=== PATIENT | female | born 1950 | race Two or more races ===

== ENCOUNTER 2018-11-30 17:14 | Emergency (ER) | payer MEDICAID ==
[~2018-11-30] VITALS: Ht 144.8 cm; Wt 62.1 kg
--- NOTE | 2018-11-30 18:16 | NUR ---
dysuria with on and off fever- BB daughter to ER
[2018-11-30 19:02] LABS: APPEARANCE,URINE Slightly Cloudy (CLEAR); BILIRUBIN,URINE Negative (NEGATIVE); BLOOD, URINE Trace-intact Ery/uL (NEGATIVE); COLOR,URINE Yellow (YELLOW); KETONES,URINE Negative (NEGATIVE); LEUKOCYTE ESTERASE ,URINE Moderate (NEGATIVE); NITRITE, URINE Negative (NEGATIVE); PH,URINE 6.5 (5.0-8.0); PROTEIN,URINE Negative (NEGATIVE); UGLUCOSE 500 MG/DL mg/dL (NEGATIVE); UROBILINOGEN,URINE 0.2 EU/dL (0.2)
[2018-11-30 19:24] LABS: BACTERIA,URINE MANY /HPF (None Seen); SQUAMOUS EPITHELIAL CELL,UR MODERATE /HPF (None Seen); WBC,URINE 30-50 /HPF (0-3)
[2018-11-30 20:14] VITALS: BP 126/68
[2018-12-25] MEDS ORDERED: SIMV40TA5 PO (07:53)
== END 2018-11-30 20:15 | disposition home or self-care (01) ==
LOC: ER 17:14
DX: N39.0 Urinary tract infection, site not specified (principal); I10 Essential (primary) hypertension; E11.9 Type 2 diabetes mellitus without complications; Z95.818 Presence of other cardiac implants and grafts; Z95.0 Presence of cardiac pacemaker
CPT/HCPCS: 81000-TC; 87086-TC; 87186-TC

== ENCOUNTER 2018-12-17 19:26 | Emergency (ER) | payer MEDICAID ==
[~2018-12-17] VITALS: Ht 144.8 cm; Wt 61.7 kg
--- NOTE | 2018-12-17 20:12 | NUR ---
PT BIB DAUGHTER C/O OF EPIGASTRIC/ABDOMINAL PAIN (/) AND NAUSEA. A/O X3, AMBULATORY. NO ACUTE DISTRESS. PLACED ON GURNEY. SAFETY PRECAUTION NOTED. AWAITING MD JOSUE AND ORDERS.
[2018-12-17] MEDS ORDERED: IV NS 0.9% 1,000 ML BAG IV ONE (20:30)
[2018-12-17] MEDS ORDERED: ONDANSETRON HCL/PF 4 MG/2 ML VIAL IVP ONE (20:30)
[2018-12-17] MEDS ORDERED: MORPHINE SULFATE INJ 2 MG/ML DISP.SYRIN IV ONE (20:30)
[2018-12-17] MEDS ORDERED: ONDANSETRON HCL/PF 4 MG/2 ML VIAL ONE (20:44)
[2018-12-17] MEDS ORDERED: MORPHINE SULFATE INJ 4 MG/ML DISP.SYRIN ONE (20:45)
[2018-12-17 20:46] LABS: BASOPHILS # (AUTO) 0.1 /CMM (0.0-0.2); EOSINOPHILS % (AUTO) 3.1 % (0.0-6.0); HEMATOCRIT 40 % (33-45); HEMOGLOBIN 12.8 g/dL (11.5-14.8); LYMPHOCYTES # (AUTO) 3.3 /CMM (0.8-4.8); LYMPHOCYTES % (AUTO) 28.1 % (20.0-44.0); MEAN CORPUSCULAR HGB CONC 32 g/dl (31.0-36.0); MEAN CORPUSCULAR VOLUME 83 fL (82-100); MONOCYTES # (AUTO) 0.9 /CMM (0.1-1.30); MONOCYTES % (AUTO) 7.5 % (2.0-12.0); NEUTROPHILS # (AUTO) 7.2 /CMM (1.8-8.9); NEUTROPHILS % (AUTO) 60.3 % (43.0-81.0); PLATELET COUNT (AUTO) 237 /CMM (150-450); WHITE BLOOD COUNT (AUTO) 11.9 K/uL (4.3-11.0)
[2018-12-17 20:55] LABS: CALCIUM, SERUM 9.5 mg/dL (8.5-10.1); POTASSIUM 4.7 mmol/L (3.5-5.1)
[2018-12-17 21:01] LABS: ALBUMIN 3.6 g/dL (3.4-5.0); BILIRUBIN,DIRECT 0.1 mg/dL (0.0-0.2); BILIRUBIN,TOTAL 0.3 mg/dL (0.2-1.0); TOTAL PROTEIN, SERUM 7.9 g/dL (6.4-8.2)
[2018-12-17] MEDS ORDERED: IV NS 0.9% 250 ML IV ONE (21:02)
[2018-12-17] MEDS ORDERED: CT SWABBABLE VALVE TRANS SET 1 EA INFUS.SET MC ONE (21:02)
[2018-12-17] MEDS ORDERED: IOHEXOL-300 100 ML VIAL IV ONE (21:02)
--- NOTE | 2018-12-17 21:14 | NUR ---
PT TAKEN TO CT SCAN.
[2018-12-18 00:09] LABS: APPEARANCE,URINE Cloudy (CLEAR); BILIRUBIN,URINE Negative (NEGATIVE); BLOOD, URINE Small Ery/uL (NEGATIVE); COLOR,URINE Yellow (YELLOW); KETONES,URINE Negative (NEGATIVE); LEUKOCYTE ESTERASE ,URINE Moderate (NEGATIVE); NITRITE, URINE Negative (NEGATIVE); PH,URINE 5.5 (5.0-8.0); PROTEIN,URINE 30 mg/dl (NEGATIVE); UGLUCOSE 250 MG/DL mg/dL (NEGATIVE); UROBILINOGEN,URINE 0.2 EU/dL (0.2)
[2018-12-18 00:19] LABS: BACTERIA,URINE 2+ /HPF (None Seen); SQUAMOUS EPITHELIAL CELL,UR Few /HPF (None Seen); WBC,URINE 21-50 /HPF (0-3)
--- NOTE | 2018-12-18 00:34 | NUR ---
IV removed. Catheter intact and site benign. Pressure and 4x4 applied to site. No bleeding noted.Patient discharged to home in stable condition. Written and verbal after care instructions given. Patient verbalizes understanding of instruction.
[2018-12-18 00:35] VITALS: BP 119/71
[2018-12-18] MEDS ORDERED: NITROFURANTOIN/NITROFURAN MAC 100 MG CAPSULE ONE (00:35)
[2018-12-18] MEDS ORDERED: NITROFURANTOIN/NITROFURAN MAC 100 MG CAPSULE PO ONE (01:00)
[2018-12-18] MEDS ORDERED: INSU100V7 SQ (18:55)
[2018-12-18] MEDS ORDERED: ASPI-1152 PO (18:55)
[2018-12-18] MEDS ORDERED: METF-440 PO (18:55)
[2018-12-18] MEDS ORDERED: INSU100V28 SQ (18:55)
[2018-12-18] MEDS ORDERED: CHOL100044 PO (18:55)
[2018-12-18] MEDS ORDERED: NEBI2.5T5 PO (18:55)
[2018-12-18] MEDS ORDERED: [UNRECOGNIZED DRUG - OTHER] PO (18:58)
[2018-12-25] MEDS ORDERED: SIMV40TA5 PO (07:53)
== END 2018-12-18 00:37 | disposition home or self-care (01) ==
LOC: ER 19:29
DX: N39.0 Urinary tract infection, site not specified (principal); R11.2 Nausea with vomiting, unspecified; I10 Essential (primary) hypertension; E11.9 Type 2 diabetes mellitus without complications; I44.4 Left anterior fascicular block; Z95.0 Presence of cardiac pacemaker; Z95.1 Presence of aortocoronary bypass graft; Z86.73 Personal history of transient ischemic attack (TIA), and cerebral infarction without residual deficits
CPT/HCPCS: 36415; 71045; 74177; 80048; 80076; 81001; 83690; 84484; 85025; 85730; 87086; 93005; 96361; 96374; 96375; 99284; J2270; J2405; J7030; J7050; Q9967; 81000-TC; 87186-TC

== ENCOUNTER 2018-12-18 17:35 | Inpatient (IN) | payer MEDICAID ==
[~2018-12-18] VITALS: Ht 144.8 cm; Wt 59.9 kg
--- NOTE | 2018-12-18 17:50 | NUR ---
PATIENT ARRIVED AMBULATORY. A&O X 3, WITH C/O N/V
[2018-12-18] MEDS ORDERED: MORPHINE SULFATE INJ 2 MG/ML DISP.SYRIN IV ONE (18:00)
[2018-12-18] MEDS ORDERED: ONDANSETRON HCL/PF 4 MG/2 ML VIAL IVP ONE (18:00)
[2018-12-18] MEDS ORDERED: IV NS 0.9% 1,000 ML BAG IV ONE ×2 (18:00→19:00)
--- NOTE | 2018-12-18 18:00 | NUR ---
BLOOD COLLECTED AND SEND TO LAB
--- NOTE | 2018-12-18 18:02 | NUR ---
STOCK LAYER AT BEDSIDE
[2018-12-18] MEDS ORDERED: MORPHINE SULFATE INJ 2 MG/ML DISP.SYRIN ONE (18:08)
[2018-12-18] MEDS ORDERED: ONDANSETRON HCL/PF 4 MG/2 ML VIAL ONE (18:08)
[2018-12-18 18:09] LABS: BASOPHILS # (AUTO) 0.1 /CMM (0.0-0.2); BASOPHILS % (AUTO) 0.6 % (0.0-2.0); EOSINOPHILS % (AUTO) 1.4 % (0.0-6.0); HEMATOCRIT 41 % (33-45); HEMOGLOBIN 13.4 g/dL (11.5-14.8); LYMPHOCYTES # (AUTO) 3.6 /CMM (0.8-4.8); LYMPHOCYTES % (AUTO) 32.9 % (20.0-44.0); MEAN CORPUSCULAR HGB CONC 33 g/dl (31.0-36.0); MEAN CORPUSCULAR VOLUME 82 fL (82-100); MONOCYTES # (AUTO) 0.5 /CMM (0.1-1.30); MONOCYTES % (AUTO) 4.6 % (2.0-12.0); NEUTROPHILS # (AUTO) 6.6 /CMM (1.8-8.9); NEUTROPHILS % (AUTO) 60.5 % (43.0-81.0); PLATELET COUNT (AUTO) 267 /CMM (150-450); RED BLOOD CELL COUNT(AUTO) 4.96 MIL/uL (4.0-5.2); WHITE BLOOD COUNT (AUTO) 10.9 K/uL (4.3-11.0)
[2018-12-18 18:22] LABS: CALCIUM, SERUM 9.8 mg/dL (8.5-10.1); CARBON DIOXIDE 27 mmol/L (21-32); CHLORIDE 99 mmol/L (98-107); CREATININE 1.1 mg/dL (0.6-1.3); GLUCOSE 255 mg/dL (74-106); POTASSIUM 3.5 mmol/L (3.5-5.1); SODIUM SERUM 139 mmol/L (136-145); UREA NITROGEN, BLOOD 25 mg/dL (7-18)
[2018-12-18 18:34] LABS: ALANINE AMINOTRANSFERASE 23 U/L (12-78); ALKALINE PHOSPHATASE 82 U/L (46-116); ASPARTATE AMINOTRANSFERASE 20 U/L (15-37); BILIRUBIN,DIRECT 0.1 mg/dL (0.0-0.2); BILIRUBIN,TOTAL 0.6 mg/dL (0.2-1.0); LIPASE 110 U/L (73-393); TOTAL PROTEIN, SERUM 8.6 g/dL (6.4-8.2)
[2018-12-18] MEDS ORDERED: METOCLOPRAMIDE HCL 10 MG/2 ML VIAL ONE (18:44)
[2018-12-18] MEDS ORDERED: LORAZEPAM INJ 2 MG/ML VIAL ONE (18:44)
[2018-12-18] MEDS ORDERED: CHOL100044 PO (18:55)
[2018-12-18] MEDS ORDERED: INSU100V7 SQ (18:55)
[2018-12-18] MEDS ORDERED: NEBI2.5T5 PO (18:55)
[2018-12-18] MEDS ORDERED: INSU100V28 SQ (18:55)
[2018-12-18] MEDS ORDERED: METF-440 PO (18:55)
[2018-12-18] MEDS ORDERED: ASPI-1152 PO (18:55)
[2018-12-18] MEDS ORDERED: [UNRECOGNIZED DRUG - OTHER] PO (18:58)
[2018-12-18] MEDS ORDERED: METOCLOPRAMIDE HCL 10 MG/2 ML VIAL IV ONE (19:00)
[2018-12-18] MEDS ORDERED: IMIPENEM/CILASTATIN 500 MG in IV NS 0.9% 100 ML IV SCH (19:00)
[2018-12-18] MEDS ORDERED: MEROPENEM 500 MG in IV NS 0.9% 50 ML IV ONE (19:00)
[2018-12-18] MEDS ORDERED: LORAZEPAM INJ 2 MG/ML VIAL IV ONE (19:00)
--- NOTE | 2018-12-18 19:23 | NUR ---
RECEIVED REPORT FROM ELAINE LOCKHART FOR EMMY. PT IS AAOX4, NOT IN RESPIRATORY DISTRESS, V/S STABLE KEPT RESTED AND COMFORTABLE, WITH ONGOING IV NS, URINE SPECIMEN COLLECTED AND SENT TO LAB.
[2018-12-18 19:37] LABS: APPEARANCE,URINE Clear (CLEAR); BILIRUBIN,URINE Negative (NEGATIVE); BLOOD, URINE Negative Ery/uL (NEGATIVE); COLOR,URINE Yellow (YELLOW); KETONES,URINE 15 (NEGATIVE); LEUKOCYTE ESTERASE ,URINE Negative (NEGATIVE); NITRITE, URINE Negative (NEGATIVE); PROTEIN,URINE 30 mg/dl (NEGATIVE); UGLUCOSE 500 MG/DL mg/dL (NEGATIVE); UROBILINOGEN,URINE 0.2 EU/dL (0.2)
[2018-12-18] MEDS ORDERED: MEROPENEM 500 MG VIAL IV ONE (19:39)
--- NOTE | 2018-12-18 20:12 | NUR ---
RECIEVED [facility] [id number]
--- NOTE | 2018-12-18 20:28 | NUR ---
REPORT GIVEN TO ELAINE WEAVER FOR EMMY.
--- NOTE | 2018-12-18 20:30 | NUR ---
CALLED [employer] COACH DOCTOR PAGED
--- NOTE | 2018-12-18 21:20 | NUR ---
QUALITY ASSURANCE COORDINATORTRANSPORTATION AIDE NOTES Admitted a 68yo female patient for intractable nausea and vomiting. Patient came to unit accompanied by daughter via aakashrsuzie. Alert, oriented x 3, algerian speaking. Patient denies smoking, drinking and recreational drug use. Patient is a vegetarian- no fish, no meat and no eggs, but okay with dairy. Tele monitor in place, sinus rhythm 95. Skin assessment done, pictures attached to chart. Oriented to call light- placed within easy reach. Bed in low, locked position. Will continue to monitor accordingly
[2018-12-18 22:00] VITALS: BP 140/63
[2018-12-18] MEDS ORDERED: IV NS 0.9% 1,000 ML IV PRN (22:17)
[2018-12-18] MEDS ORDERED: ACETAMINOPHEN 325 MG TABLET PO PRN (22:30)
[2018-12-18] MEDS ORDERED: Z GUARD REMEDY 2 OZ OINT TP PRN (22:30)
[2018-12-18] MEDS ORDERED: DEXTROSE 50%-WATER 50 ML DISP.SYRIN IV PRN (22:30)
[2018-12-18] MEDS: METOCLOPRAMIDE HCL 10 MG/2 ML VIAL IV SCH (22:44)
[2018-12-18] MEDS: INSULIN REGULAR, HUMAN 100 UNIT/ML 3 ML VIAL SQ PRN (22:52)
--- NOTE | 2018-12-18 22:53 | NUR ---
RN NOTES BSL- 233mg/dL. Insulin 4units given as ordered.
[2018-12-19] VITALS: BP 155/90
[2018-12-19] MEDS: ONDANSETRON HCL/PF 4 MG/2 ML VIAL IVP PRN ×3 (02:17→13:33)
[2018-12-19 04:00] VITALS: BP 155/82
[2018-12-19] MEDS: METOCLOPRAMIDE HCL 10 MG/2 ML VIAL IV SCH ×4 (04:30→21:34)
[2018-12-19 06:21] LABS: BASOPHILS % (AUTO) 0.2 % (0.0-2.0); HEMATOCRIT 36 % (33-45); HEMOGLOBIN 11.9 g/dL (11.5-14.8); LYMPHOCYTES # (AUTO) 1.1 /CMM (0.8-4.8); LYMPHOCYTES % (AUTO) 8.3 % (20.0-44.0); MEAN CORPUSCULAR HGB CONC 33 g/dl (31.0-36.0); MEAN CORPUSCULAR VOLUME 81 fL (82-100); MONOCYTES # (AUTO) 0.6 /CMM (0.1-1.30); MONOCYTES % (AUTO) 4.1 % (2.0-12.0); NEUTROPHILS % (AUTO) 87.4 % (43.0-81.0); PLATELET COUNT (AUTO) 218 /CMM (150-450); RED BLOOD CELL COUNT(AUTO) 4.44 MIL/uL (4.0-5.2); WHITE BLOOD COUNT (AUTO) 13.8 K/uL (4.3-11.0)
[2018-12-19 06:26] LABS: CALCIUM, SERUM 8.6 mg/dL (8.5-10.1); CREATININE 0.8 mg/dL (0.6-1.3); PHOSPHORUS 5.1 mg/dL (2.5-4.9); POTASSIUM 4.1 mmol/L (3.5-5.1)
--- NOTE | 2018-12-19 06:42 | NUR ---
RN NOTES Reported to Dr. Christopher Duggan critical value of troponin- 1.525. Telephone order to give aspirin 325mg PO x 1 and to start lovenox 1mg/kg SQ BID. Orders noted and carried out
[2018-12-19 06:47] LABS: MAGNESIUM 1.1 mg/dL (1.8-2.4)
[2018-12-19] MEDS ORDERED: ASPIRIN 325 MG TABLET PO ONE (07:00)
[2018-12-19] MEDS: INSULIN REGULAR, HUMAN 100 UNIT/ML 3 ML VIAL SQ PRN ×4 (07:08→21:32)
[2018-12-19] MEDS: BLOOD SUGAR DIAGNOSTIC 1 EACH STRIP IN SCH ×4 (07:17→21:05)
--- NOTE | 2018-12-19 07:30 | NUR ---
HOUSING LIAISON CLOSING NOTES Patient in bed, alert, oriented x 3. Daughter at bedside. Not in any distress. peripheral IV infusing at 75mL/hr. Tele monitor in place, SR 95. BSL 238, 4units insulin coverage given. Safety measures in place. Endorsed EMMY to AM RN Addendum: 12/19/18 at 0745 by KEYONNA ORTIZ RN ADDITIONAL NOTES Endorsed Mg level of 1.1
--- NOTE | 2018-12-19 08:00 | NUR ---
HOME HEALTH ASSISTANT OPENING NOTES Received Patient awake and resting in bed with daughter at bedside. A/O x 4, Tonya speaking. VS stable with no acute distress. Breathing even and unlabored on room air with no respiratory distress. Denies pain at the this moment. Dry wounds on BILATERAL BIG TOES clean and dry. 18g PIV on RAC clean, dry, intact and flushes well. IVF NS running at 75ml/hr. Tele monitor in place and operational. SR HR-98. Safety precautions in place. Bed locked and in lowest position with side rails x 2 up. Call light within reach. Will continue to monitor.
[2018-12-19 08:33] VITALS: BP 134/72
[2018-12-19] MEDS ORDERED: MEROPENEM 500 MG in IV NS 0.9% 50 ML IV SCH (09:00)
[2018-12-19] MEDS ORDERED: IOHEXOL-350 100 ML VIAL IV ONE (09:32)
[2018-12-19] MEDS ORDERED: METOPROLOL TARTRATE INJ 5 MG/5 ML AMPUL ONE ×4 (09:32→11:16)
--- NOTE | 2018-12-19 09:45 | NUR ---
CLOD PULLER NOTES Patient taken for CT Angiogram w/ Contrast at this time.
[2018-12-19] MEDS ORDERED: NITROGLYCERIN 0.4 MG/TAB BOTTLE ONE (11:10)
--- NOTE | 2018-12-19 11:24 | NUR ---
CTA completed VSS. Pt tolerated procedure well. Metoprolol IV total 50 mg given, one Nitro SL.
--- NOTE | 2018-12-19 11:50 | NUR ---
INSOLE PRESSER NOTES Patient returned from CT Angiogram with Contrast. VS stable with no acute distress. Breathing even and unlabored, tolerating room air. Will administer AM medications at this time. Daughter at bedside. Will continue to monitor.
[2018-12-19] MEDS: CARVEDILOL 3.125 MG TABLET PO SCH ×2 (11:52→21:16)
[2018-12-19] MEDS: ASPIRIN EC 81 MG TABLET.DR PO SCH (11:52)
[2018-12-19] MEDS: CHOLECALCIFEROL 1,000 UNIT TABLET (VIT D3) PO SCH (11:52)
[2018-12-19] MEDS: MEROPENEM 1 G in IV NS 0.9% 100 ML IV SCH ×2 (11:53→20:56)
[2018-12-19] MEDS: Magnesium 1GM/D5W 100ML PREMIX 100 ML IV SCH ×2 (11:53→13:26)
[2018-12-19] MEDS: ENOXAPARIN SODIUM 60 MG/0.6 ML DISP.SYRIN SQ SCH ×2 (11:56→21:13)
[2018-12-19] MEDS: VALSARTAN 80 MG TABLET PO SCH (13:26)
[2018-12-19 15:52] VITALS: BP 146/82
--- NOTE | 2018-12-19 16:23 | NUR ---
CANCER RESEARCHER NOTES Notified Dr. Alford and Dr. Escalante CT Angiogram results and Troponin Levels at this time. NNO. Will continue to monitor.
--- NOTE | 2018-12-19 19:33 | NUR ---
ADAPTED PHYSICAL EDUCATION AIDE CLOSING NOTES Patient asleep in bed with at bedside. A/O x 4, Tonya speaking. VS stable with no acute distress. Breathing even and unlabored on room air with no respiratory distress. Denies pain at the this moment. Dry wounds on BILATERAL BIG TOES clean and dry. Saline [id number] PIV on RAC clean, dry, intact and flushes well. Tele monitor in place and operational. SR HR-96. Safety precautions in place. Bed locked and in lowest position with side rails x 2 up. Call light within reach. Will endorse plan of care to oncoming shift.
--- NOTE | 2018-12-19 19:35 | NUR ---
RN OPENING NOTES RECEIVED REPORT FROM DAYSHIFT RN REJI. FOUND Pt ASLEEP IN BED, RESPIRATIONS EVEN AND UNLABORED. NO S/S OF ACUTE DISTRESS OR SOB NOTED. VISITING AT BEDSIDE. PER REPORT Pt IS A/OX4, VERBAL, VANCE SPEAKING ONLY. ON TELE MONITOR SR 75. IV ACCESS ON RAC #18G, SL. SAFETY MEASURES IN PLACE. BED LOW, LOCKED, HOB ELEVATED, SIDE RAILS UP, CALL LIGHT AND BEDSIDE TABLE WITHIN REACH. WILL CONTINUE TO MONITOR Pt's CONDITION AND SAFETY THROUGHOUT THE NIGHT.
[2018-12-19 20:00] VITALS: BP 119/73
[2018-12-19 20:44] VITALS: BP 119/73
--- NOTE | 2018-12-19 21:57 | NUR ---
RN NOTES HS ACCUCHECK BG 206. ADMINISTERED SCHEDULED 10UN OF LANTUS AND GAVE ADDITIONAL COVERAGE OF REG INSULIN 4UN. PROVIDED SNACKS AT BEDSIDE.
[2018-12-19] MEDS ORDERED: INSULIN GLARGINE, 100 UNIT/ML CARTRIDGE SQ SCH (22:00)
[2018-12-20] VITALS: BP 119/56
[2018-12-20] MEDS: ONDANSETRON HCL/PF 4 MG/2 ML VIAL IVP PRN ×2 (00:36→06:16)
[2018-12-20] MEDS: ZOLPIDEM TARTRATE 5 MG TABLET PO PRN ×2 (00:43→23:44)
[2018-12-20] MEDS: METOCLOPRAMIDE HCL 10 MG/2 ML VIAL IV SCH ×4 (03:45→21:30)
[2018-12-20 04:08] VITALS: BP 145/71
[2018-12-20] MEDS: BLOOD SUGAR DIAGNOSTIC 1 EACH STRIP IN SCH ×4 (06:23→21:12)
[2018-12-20] MEDS: INSULIN REGULAR, HUMAN 100 UNIT/ML 3 ML VIAL SQ PRN ×4 (06:26→21:30)
[2018-12-20 06:27] LABS: BASOPHILS # (AUTO) 0.1 /CMM (0.0-0.2); BASOPHILS % (AUTO) 0.5 % (0.0-2.0); HEMATOCRIT 35 % (33-45); HEMOGLOBIN 11.4 g/dL (11.5-14.8); LYMPHOCYTES # (AUTO) 2.2 /CMM (0.8-4.8); LYMPHOCYTES % (AUTO) 13.8 % (20.0-44.0); MEAN CORPUSCULAR HGB CONC 33 g/dl (31.0-36.0); MEAN CORPUSCULAR VOLUME 81 fL (82-100); MONOCYTES # (AUTO) 0.9 /CMM (0.1-1.30); MONOCYTES % (AUTO) 5.9 % (2.0-12.0); NEUTROPHILS # (AUTO) 12.6 /CMM (1.8-8.9); NEUTROPHILS % (AUTO) 78.8 % (43.0-81.0); PLATELET COUNT (AUTO) 209 /CMM (150-450); RED BLOOD CELL COUNT(AUTO) 4.26 MIL/uL (4.0-5.2)
--- NOTE | 2018-12-20 06:30 | NUR ---
RN NOTES AC ACCUCHECK 153. ADMINISTERED 2UN OF INSULIN PER SLIDING SCALE.
[2018-12-20 06:44] LABS: ALBUMIN 3.1 g/dL (3.4-5.0); BILIRUBIN,TOTAL 0.5 mg/dL (0.2-1.0); CALCIUM, SERUM 8.3 mg/dL (8.5-10.1); MAGNESIUM 1.7 mg/dL (1.8-2.4); PHOSPHORUS 2.6 mg/dL (2.5-4.9); POTASSIUM 3.2 mmol/L (3.5-5.1); TOTAL PROTEIN, SERUM 6.9 g/dL (6.4-8.2)
--- NOTE | 2018-12-20 06:50 | NUR ---
RN CLOSING NOTES NO SIGNIFICANT CHANGES IN Pt's CONDITION. NO S/S OF ACUTE DISTRESS OR SEVERE SOB NOTED DURING THE NIGHT. ALL NEEDS MET AND ATTENDED TO. Pt IS RESTING IN BED, RESPIRATION EVEN AND UNLABORED. SAFETY MEASURES IN PLACE. BED LOW, LOCKED, HOB ELEVATED, SIDE RAILS UP, CALL LIGHT AND BEDSIDE TABLE WITHIN REACH. WILL ENDORSE TO DAYSHIFT RN FOR Pt's EMMY.
--- NOTE | 2018-12-20 07:00 | NUR ---
RN NOTES PAGED [facility] ONCALL FOR CRITICAL LAB VALUE OF TROPONIN 3.573 WAITING FOR CALL BACK.
--- NOTE | 2018-12-20 07:07 | NUR ---
RN NOTES SPOKE WITH DR FIGUEREDO ON THE PHONE. INFORMED HIM OF Pt's ELEVATED TROP OF 3.573, SAID TO INFORM DR. BROTHERS & DR. ORTEGA.
--- NOTE | 2018-12-20 07:25 | NUR ---
RN NOTES SPOKE WITH DR BROTHERS ON THE PHONE. INFORMED HIM OF Pt's ELEVATED TROP LEVEL OF 3.573, ALSO INFORMED HIM THAT Pt IS C/O HEART BURN. ORDERED MYLANTA/MAALOX. DENEEN SAID HE WILL BE IN THE HOSPITAL SHORTLY TO SEE THE Pt IN PERSON. WILL CARRY OUT THE ORDER.
--- NOTE | 2018-12-20 07:25 | NUR ---
CHASER HELPER OPENING NOTE RECEIVED PATIENT IN BED. ALERT ORIENTED X4. ON ROOM AIR, TOLERATING WELL. RESPIRATIONS EVEN AND UNLABORED. IN NO SIGNIFICANT DISTRESS, HOWEVER PATIENT REPORTS HEARTBURN AND NAUSEA. MD NOTIFIED, ORDERS TO BE RENDERED. PATIENT IS ABLE TO COMMUNICATE NEEDS IN HER [place] LANGUAGE, DAUGHTER AT BEDSIDE ASSISTS WITH TRANSLATION. PATIENT ON TELE MONITORING WITH SR WITH PVC'S AND HR OF 80S. RIGHT AC 18G SL, PATENT AND INTACT. PATIENT KEPT CLEAN AND COMFORTABLE. SAFETY MEASURES IN PLACE, BED IN LOW LOCKED POSITION, SIDE RAILS UP x 2 CALL LIGHT WITHIN EASY REACH, WILL CONTINUE TO MONITOR.
[2018-12-20] MEDS ORDERED: MAG HYDROX/AL HYDROX/SIMETH 30 ML UDC PO PRN (07:30)
[2018-12-20 08:00] VITALS: BP 137/73
[2018-12-20] MEDS: VALSARTAN 80 MG TABLET PO SCH (08:24)
[2018-12-20] MEDS: CARVEDILOL 3.125 MG TABLET PO SCH (08:24)
[2018-12-20] MEDS: ASPIRIN EC 81 MG TABLET.DR PO SCH (08:24)
[2018-12-20] MEDS: MEROPENEM 1 G in IV NS 0.9% 100 ML IV SCH ×2 (08:25→20:36)
[2018-12-20] MEDS: CHOLECALCIFEROL 1,000 UNIT TABLET (VIT D3) PO SCH (08:25)
[2018-12-20] MEDS: ENOXAPARIN SODIUM 60 MG/0.6 ML DISP.SYRIN SQ SCH ×2 (08:36→20:51)
[2018-12-20 08:38] VITALS: BP 137/73
[2018-12-20] MEDS ORDERED: POTASSIUM CHLORIDE 20 MEQ TAB.PRT.SR PO ONE (09:00)
[2018-12-20] MEDS ORDERED: NITROGLYCERIN 30 GM TUBE TP SCH (09:00)
[2018-12-20] MEDS: CARVEDILOL 12.5 MG TABLET PO SCH ×2 (09:00→23:32)
[2018-12-20] MEDS: PANTOPRAZOLE 40 MG TABLET.DR PO SCH ×2 (09:44→20:46)
[2018-12-20] MEDS: POTASSIUM CHLORIDE 20 MEQ TAB.PRT.SR PO SCH ×2 (09:44→11:14)
[2018-12-20] MEDS: SUCRALFATE 1 G TABLET PO SCH ×3 (11:14→21:13)
[2018-12-20] MEDS: Magnesium 1GM/D5W 100ML PREMIX 100 ML IV SCH ×2 (11:14→15:06)
--- NOTE | 2018-12-20 11:26 | NUR ---
WOUND CARE CONSULT: PT PRESENTS CONTINENT AND INDEPENDENT WITH BED MOBILITY. PT NOTED TO HAVE BILATERAL PLANTAR GREAT TOE CALLUSES AND CHEST SURGICAL SCAR, PRESENT ON ADMISSION. WILL DEFER TO MD. WILL SEE PRN.
[2018-12-20 16:14] VITALS: BP 130/82
--- NOTE | 2018-12-20 18:30 | NUR ---
PATIENT REPORTS NAUSEA AND VOMITING SMALL AMOUNT OF EMESIS. ZOFRAN ADMINISTERED AT THIS TIME. WILL CONTINUE TO MONITOR.
--- NOTE | 2018-12-20 18:30 | NUR ---
PATIENT IS NAUSEOUS AND THROWING UP. ORAL IMDUR IS HELD AT THIS TIME. WILL ADMINISTER WHEN PATIENT'S NAUSEA IS IMPROVED. WILL CONTINUE TO MONITOR AT THIS TIME.
--- NOTE | 2018-12-20 19:34 | NUR ---
CHIP APPLYING MACHINE TENDER CLOSING NOTE PATIENT SITTING IN A CHAIR. ALERT ORIENTED X4. ON ROOM AIR, TOLERATING WELL. RESPIRATIONS EVEN AND UNLABORED. IN NO APPARENT DISTRESS OR DISCOMFORT AT THIS TIME. REPORTS VOMITING CEASED AT THIS TIME. PATIENT IS ABLE TO COMMUNICATE NEEDS IN HER [place] LANGUAGE, DAUGHTER AT BEDSIDE ASSISTS WITH TRANSLATION. PATIENT ON TELE MONITORING WITH SR AND HR OF 83. RIGHT AC 18G SL, PATENT AND INTACT. PATIENT KEPT CLEAN AND COMFORTABLE. ALL NEEDS ATTENDED, SAFETY MEASURES IN PLACE, BED IN LOW LOCKED POSITION, SIDE RAILS UP x 2, CALL LIGHT WITHIN EASY REACH, WILL ENDORSE TO PM NURSE FOR EMMY.
--- NOTE | 2018-12-20 19:45 | NUR ---
RN OPENING NOTES RECEIVED REPORT FROM DAYSHIFT ELAINE HAND. FOUND Pt AWAKE, RESTING IN BED, RESPIRATIONS EVEN AND UNLABORED. NO S/S OF ACUTE DISTRESS OR SOB NOTED. DAUGHTER VISITING AT BEDSIDE. Pt IS A/OX4, VERBAL, VANCE SPEAKING ONLY. ON TELE MONITOR SR 75. IV ACCESS ON RAC #18G, SL. WILL BE GETTING PICC LINE INSERTED SOON, WAITING FOR CONSENT TO BE SIGNED. SAFETY MEASURES IN PLACE. BED LOW, LOCKED, HOB ELEVATED, SIDE RAILS UP, CALL LIGHT AND BEDSIDE TABLE WITHIN REACH. WILL CONTINUE TO MONITOR Pt's CONDITION AND SAFETY THROUGHOUT THE NIGHT.
[2018-12-20 20:00] VITALS: BP 153/65
--- NOTE | 2018-12-20 20:05 | NUR ---
RN NOTES PICC LINE INSERTION CONSENT SIGNED. PICC LINE INSERTED ON ZEHRA.
[2018-12-20] MEDS: ISOSORBIDE MONONITRATE (30MG) 30 MG TAB.SR.24H PO SCH (20:36)
--- NOTE | 2018-12-20 20:45 | NUR ---
RN NOTES PER DAYSHIFT Pt WAS VOMITING WHEN THE 1829 IMDUR WAS DUE. HELD THE IMDUR UNTIL Pt's VOMITING WAS RESOLVED WITH ZOFRAN. WAS ENDORSED TO GIVE THE IMDUR LATER WHEN Pt FEELS BETTER. WAS ABLE TO GIVE THE IMDUR 30MG PO @2029, Pt WAS ABLE TO TOLERATE PO INTAKE.
[2018-12-20] MEDS ORDERED: INSULIN GLARGINE, 100 UNIT/ML CARTRIDGE SQ SCH (22:00)
--- NOTE | 2018-12-20 22:00 | NUR ---
RN NOTES HS ACCUCHECK 192. ADMINISTERED SCHEDULED LANTUS 12UN WITH ADDITIONAL COVERAGE OF 3UN REG INSULIN PER SLIDING SCALE.
[2018-12-21] VITALS: BP 134/74
[2018-12-21 04:00] VITALS: BP 141/82
[2018-12-21] MEDS: METOCLOPRAMIDE HCL 10 MG/2 ML VIAL IV SCH (05:14)
[2018-12-21 06:33] LABS: BASOPHILS # (AUTO) 0.1 /CMM (0.0-0.2); BASOPHILS % (AUTO) 0.7 % (0.0-2.0); HEMATOCRIT 30 % (33-45); LYMPHOCYTES % (AUTO) 28.6 % (20.0-44.0); MEAN CORPUSCULAR HGB CONC 34 g/dl (31.0-36.0); MEAN CORPUSCULAR VOLUME 80 fL (82-100); MONOCYTES # (AUTO) 0.9 /CMM (0.1-1.30); MONOCYTES % (AUTO) 8.5 % (2.0-12.0); NEUTROPHILS # (AUTO) 6.1 /CMM (1.8-8.9); NEUTROPHILS % (AUTO) 59.2 % (43.0-81.0); PLATELET COUNT (AUTO) 187 /CMM (150-450); RED BLOOD CELL COUNT(AUTO) 3.68 MIL/uL (4.0-5.2); WHITE BLOOD COUNT (AUTO) 10.3 K/uL (4.3-11.0)
[2018-12-21 06:36] LABS: ALBUMIN 2.7 g/dL (3.4-5.0); BILIRUBIN,TOTAL 0.7 mg/dL (0.2-1.0); CALCIUM, SERUM 8.3 mg/dL (8.5-10.1); MAGNESIUM 1.8 mg/dL (1.8-2.4); PHOSPHORUS 2.1 mg/dL (2.5-4.9); POTASSIUM 3.8 mmol/L (3.5-5.1); TOTAL PROTEIN, SERUM 6.3 g/dL (6.4-8.2)
--- NOTE | 2018-12-21 06:40 | NUR ---
RN NOTES AC ACCUCHECK BG 157. ADMINISTERED 2UN OF REG INSULIN PER SLIDING SCALE.
[2018-12-21] MEDS: BLOOD SUGAR DIAGNOSTIC 1 EACH STRIP IN SCH ×4 (06:42→21:09)
[2018-12-21] MEDS: SUCRALFATE 1 G TABLET PO SCH ×4 (06:43→21:15)
[2018-12-21] MEDS: INSULIN REGULAR, HUMAN 100 UNIT/ML 3 ML VIAL SQ PRN ×4 (06:49→21:14)
--- NOTE | 2018-12-21 06:55 | NUR ---
RN CLOSING NOTES NO SIGNIFICANT CHANGES IN Pt's CONDITION. Pt REMAINS STABLE AT THIS TIME. NO S/S OF ACUTE DISTRESS OR SOB NOTED DURING THE NIGHT. ALL NEEDS MET AND ATTENDED TO. Pt IS RESTING IN BED, RESPIRATION EVEN AND UNLABORED. SAFETY MEASURES IN PLACE. BED LOW, LOCKED, HOB ELEVATED, SIDE RAILS UP, CALL LIGHT AND BEDSIDE TABLE WITHIN REACH. TELE READING SR 70s. WILL ENDORSE TO DAYSHIFT RN FOR Pt's EMMY.
--- NOTE | 2018-12-21 07:45 | NUR ---
PIANO TEACHER OPENING NOTES RECEIVED PT LAYING IN BED WITH HOB ELEVATED. PT IS AWAKE, ALERT AND RESPONSIVE. AFEBRILE. RESPIRATIONS ARE EVEN AND UNLABORED, NOT IN ANY ACUTE DISTRESS NOTED. PT DENIES ANY PAIN, NO C/O SOB, N/V AT THIS TIME. ZEHRA PICCLINE INTACT, NO INFILTRATION NOTED. DRESSING KEPT CLEAN AND DRY. SAFETY MEASURES ARE IN PLACE. DAUGHTER AT BEDSIDE. WILL CONTINUE TO MONITOR THROUGHOUT SHIFT FOR CONTINUITY OF CARE.
[2018-12-21 08:00] VITALS: BP 134/80
[2018-12-21] MEDS: MEROPENEM 1 G in IV NS 0.9% 100 ML IV SCH ×2 (08:23→20:34)
[2018-12-21] MEDS: CARVEDILOL 12.5 MG TABLET PO SCH ×2 (08:23→20:44)
[2018-12-21] MEDS: ISOSORBIDE MONONITRATE (30MG) 30 MG TAB.SR.24H PO SCH (08:23)
[2018-12-21] MEDS: PANTOPRAZOLE 40 MG TABLET.DR PO SCH ×2 (08:23→20:43)
[2018-12-21] MEDS: CHOLECALCIFEROL 1,000 UNIT TABLET (VIT D3) PO SCH (08:23)
[2018-12-21] MEDS: ASPIRIN EC 81 MG TABLET.DR PO SCH (08:23)
[2018-12-21] MEDS: VALSARTAN 80 MG TABLET PO SCH (08:24)
--- NOTE | 2018-12-21 08:30 | NUR ---
MS RN NOTES-- PT WAS SEEN AND EXAMINED BY DR. BROTHERS AND DR. MENDEZ.
[2018-12-21] MEDS: ONDANSETRON HCL/PF 4 MG/2 ML VIAL IVP PRN ×2 (09:54→17:53)
[2018-12-21] MEDS: AMLODIPINE BESYLATE 10 MG TABLET PO SCH (09:55)
[2018-12-21] MEDS ORDERED: K PHOS NEUTRAL 250 MG TABLET PO ONE (10:00)
--- NOTE | 2018-12-21 14:41 | NUR ---
MS RN NOTES-- CALLED US, PER US TECH THEY WILL BE UP WITHIN 20 MINS. PT NOTIFIED.
--- NOTE | 2018-12-21 15:30 | NUR ---
MS RN NOTES-- NOTIFIED DR. MENDEZ OF US ABDOMEN RESULTS W/ ORDERS TO RESUME DIET.
[2018-12-21 16:00] VITALS: BP 110/50
--- NOTE | 2018-12-21 18:32 | NUR ---
MS RN CLOSING NOTES ALL DUE MEDS GIVEN, NEEDS MET AND RENDERED. PT IS A/O X4, AFEBRILE. RESPIRATIONS ARE EVEN AND UNLABORED, NOT IN ANY ACUTE DISTRESS NOTED. PT DENIES ANY PAIN AT THIS TIME, NO C/O SOB. N/V RELIEVED BY REGLAN. ZEHRA PICC LINE INTACT, NO INFILTRATION NOTED. DRESSING KEPT CLEAN AND DRY. DAUGHTER AT BEDSIDE. SAFETY MEASURES ARE IN PLACE. REMINDED PT TO USE CALL LIGHT WHEN ASSISTANCE IS NEEDED, CALL LIGHT IS LEFT WITHIN REACH. WILL ENDORSE TO NEXT SHIFT FOR CONTINUITY OF CARE.
--- NOTE | 2018-12-21 19:21 | NUR ---
MS RN RECEIVE PT IN BED AWAKE WATCHING TV, A/O X 3, RESPIRATIONS EVEN AND UNLABORED, NO SOB NOTED, NO DISTRESS, SAFETY MEASURES IN PLACE. WILL CONTINUE TO MONITOR.
[2018-12-21 20:00] VITALS: BP 129/75
[2018-12-21] MEDS ORDERED: ENOXAPARIN SODIUM 40 MG/0.4 ML DISP.SYRIN SQ SCH (21:00)
[2018-12-21] MEDS: INSULIN GLARGINE, 100 UNIT/ML CARTRIDGE SQ SCH (21:15)
[2018-12-21] MEDS: ZOLPIDEM TARTRATE 5 MG TABLET PO PRN (23:00)
[2018-12-22] MEDS: BLOOD SUGAR DIAGNOSTIC 1 EACH STRIP IN SCH ×4 (05:42→20:46)
[2018-12-22] MEDS: INSULIN REGULAR, HUMAN 100 UNIT/ML 3 ML VIAL SQ PRN (05:52)
[2018-12-22] MEDS: ONDANSETRON HCL/PF 4 MG/2 ML VIAL IVP PRN (05:54)
--- NOTE | 2018-12-22 05:54 | NUR ---
MS RN PT NOTED VOMITING BROWNISH EMESIS 10 ML. WILL GIVE ZOFRAN IVP. WILL CONT TO MTR.
--- NOTE | 2018-12-22 06:15 | NUR ---
MS RN ASLEEP AND EASILY AWAKEN, PT SLEPT WELL THROUGHOUT THE NIGHT, NO COMPLAIN OF PAIN, RESPIRATION EVEN AND UNLABORED, IN NO APPARENT DISTRESS. NEEDS ATTENDED AND ANTICIPATED, KEPT CLEAN AND DRY AND COMFORTABLE. AM CARE RENDERED. SAFETY MEASURES AT ALL TIMES. ENDORSE TO THE NEXT SHIFT.
[2018-12-22 07:19] LABS: BASOPHILS # (AUTO) 0.1 /CMM (0.0-0.2); BASOPHILS % (AUTO) 0.7 % (0.0-2.0); EOSINOPHILS % (AUTO) 3.1 % (0.0-6.0); HEMATOCRIT 34 % (33-45); HEMOGLOBIN 11.8 g/dL (11.5-14.8); LYMPHOCYTES # (AUTO) 2.2 /CMM (0.8-4.8); LYMPHOCYTES % (AUTO) 24.9 % (20.0-44.0); MEAN CORPUSCULAR HGB CONC 34 g/dl (31.0-36.0); MEAN CORPUSCULAR VOLUME 79 fL (82-100); MONOCYTES # (AUTO) 0.8 /CMM (0.1-1.30); MONOCYTES % (AUTO) 8.7 % (2.0-12.0); NEUTROPHILS # (AUTO) 5.5 /CMM (1.8-8.9); NEUTROPHILS % (AUTO) 62.6 % (43.0-81.0); PLATELET COUNT (AUTO) 185 /CMM (150-450); RED BLOOD CELL COUNT(AUTO) 4.33 MIL/uL (4.0-5.2); WHITE BLOOD COUNT (AUTO) 8.7 K/uL (4.3-11.0)
--- NOTE | 2018-12-22 07:37 | NUR ---
MS RN OPENING NOTES RECEIVED PT LAYING IN BED WITH HOB ELEVATED. PT IS AWAKE, ALERT AND RESPONSIVE. AFEBRILE. RESPIRATIONS ARE EVEN AND UNLABORED, NOT IN ANY ACUTE DISTRESS NOTED. PT DENIES ANY PAIN, NO C/O SOB, N/V AT THIS TIME. PT WAS MEDICATED FOR NAUSEA THIA AM AND WILL CONTINUE TO MONITOR. ZEHRA PICCLINE INTACT, NO INFILTRATION NOTED. DRESSING KEPT CLEAN AND DRY. SAFETY MEASURES ARE IN PLACE. DAUGHTER AT BEDSIDE. WILL CONTINUE TO MONITOR THROUGHOUT SHIFT FOR CONTINUITY OF CARE.
[2018-12-22 07:49] LABS: CALCIUM, SERUM 8.4 mg/dL (8.5-10.1); CREATININE 0.8 mg/dL (0.6-1.3); PHOSPHORUS 2.1 mg/dL (2.5-4.9); POTASSIUM 3.6 mmol/L (3.5-5.1)
[2018-12-22 08:00] VITALS: BP 155/75
[2018-12-22] MEDS: MEROPENEM 1 G in IV NS 0.9% 100 ML IV SCH ×2 (08:14→20:44)
[2018-12-22] MEDS: SUCRALFATE 1 G/10 ML UDC PO SCH ×4 (08:14→20:58)
[2018-12-22] MEDS: CARVEDILOL 12.5 MG TABLET PO SCH ×2 (08:19→20:20)
[2018-12-22] MEDS: CHOLECALCIFEROL 1,000 UNIT TABLET (VIT D3) PO SCH (08:19)
[2018-12-22] MEDS: AMLODIPINE BESYLATE 10 MG TABLET PO SCH (08:19)
[2018-12-22] MEDS: PANTOPRAZOLE 40 MG TABLET.DR PO SCH (08:19)
[2018-12-22] MEDS: ISOSORBIDE MONONITRATE (30MG) 30 MG TAB.SR.24H PO SCH (08:19)
[2018-12-22] MEDS: ASPIRIN EC 81 MG TABLET.DR PO SCH (08:19)
--- NOTE | 2018-12-22 08:20 | NUR ---
MS RN NOTES-- PT SEEN AND EXAMINED BY DR. ANDREA Quan/ ANJU FOR NM GASTRIC EMPTYING STUDY. ORDERS CARRIED OUT.
[2018-12-22] MEDS: PANTOPRAZOLE 40 MG VIAL IV SCH ×2 (09:13→20:46)
[2018-12-22] MEDS: METOCLOPRAMIDE HCL 10 MG/2 ML VIAL IV SCH ×4 (09:13→23:13)
[2018-12-22] MEDS: VALSARTAN 80 MG TABLET PO SCH (09:14)
[2018-12-22] MEDS: K PHOS NEUTRAL 250 MG TABLET PO SCH ×4 (09:14→20:22)
[2018-12-22] MEDS: hydrALAZINE HCL 50 MG TABLET PO SCH ×2 (11:00→17:00)
[2018-12-22] MEDS ORDERED: NEUTRA PHOS 1 POWD.PACKET PO SCH (11:00)
[2018-12-22 11:08] LABS: IRON, SERUM 60 ug/dl (50-175); TOTAL IRON BINDING CAPACITY 210 ug/dl (250-450)
[2018-12-22 11:21] LABS: FERRITIN 178 ng/mL (8-388)
--- NOTE | 2018-12-22 11:35 | NUR ---
MS RN NOTES-- PT P/U BY RADIOLOGY FOR GASTRIC EMPTYING STUDY IN STABLE CONDITION VIA WC. TECH MADE AWARE OF PT ISOLATION. CONSENTS SIGNED.
--- NOTE | 2018-12-22 13:45 | NUR ---
MS HENRY NOTES-- PT CAME BACK FROM GASTRIC EMPTYING STUDY IN STABLE CONDITION VIA WC.
--- NOTE | 2018-12-22 15:40 | NUR ---
MS RN NOTES-- NOTIFIED KARYN MURRAY W/ ORDERS FOR INSERTION OG NGT WITH LOW INTERMITTENT SUCTIONING AND STAT CHEST XRAY. ORDERS READ BACK AND VERIFIED, NOTED AND CARRIED OUT.
[2018-12-22 16:00] VITALS: BP 166/92
--- NOTE | 2018-12-22 16:14 | NUR ---
MS RN NOTES-- HOB ELEVATED 90 DEGREES. WASHED HANDS AND DONNED GLOVES. MEASURED NGT AT 70. INSERTED NGT 14 TO PATENT RIGHT NARE WITH MINIMAL LUBE FOR EASY INSERTION. ENCOURAGED PT TO SWALLOW DURING INSERTION. PT TOLERATED WELL. SECURED WITH TAPE AT 70. POWER TOOL REPAIR TECHNICIAN AT BEDSIDE. WAITING RESULTS.
[2018-12-22] MEDS ORDERED: hydrALAZINE HCL IV 20 MG VIAL IV PRN (17:00)
--- NOTE | 2018-12-22 17:50 | NUR ---
MS RN NOTES-- CLARIFIED WITH KARYN MURRAY THAT PT WILL BE NPO.
--- NOTE | 2018-12-22 17:50 | NUR ---
MS RN NOTES-- BLOOD SUGAR 137. NO INSULIN GIVEN D/T PT BEING NPO. NO S/SXOF HYPO/HYPERGLYCEMIA NOTED. WILL CONTINUE TO MONITOR.
--- NOTE | 2018-12-22 18:15 | NUR ---
MS RN NOTES-- NGT IN PLACE. WILL CONTINUE TO MONITOR.
--- NOTE | 2018-12-22 18:30 | NUR ---
MS RN NOTES-- PT SEEN AND EXAMINED BY KARYN MURRAY W/ ORDERS FOR HIDA SCAN. CONSENTS SIGNED.
--- NOTE | 2018-12-22 18:30 | NUR ---
MS RN CLOSING NOTES ALL DUE MEDS GIVEN, NEEDS MET AND RENDERED. PT IS A/O X4, AFEBRILE. RESPIRATIONS ARE EVEN AND UNLABORED, NOT IN ANY ACUTE DISTRESS NOTED. PT DENIES ANY PAIN AT THIS TIME, NO C/O SOB. N/V RELIEVED BY REGLAN. NGT INTACT AND IS ON LOW INTERMITTENT SUCTION. ZEHRA PICC LINE INTACT, NO INFILTRATION NOTED. DRESSING KEPT CLEAN AND DRY. DAUGHTER AT BEDSIDE. SAFETY MEASURES ARE IN PLACE. REMINDED PT TO USE CALL LIGHT WHEN ASSISTANCE IS NEEDED, CALL LIGHT IS LEFT WITHIN REACH. WILL ENDORSE TO NEXT SHIFT FOR CONTINUITY OF CARE.
--- NOTE | 2018-12-22 19:20 | NUR ---
bedside report recieved from shawn sandoval. patient seen daughter at the bedside. asking if ivf may be started. poc reviewed. spoke with nuclear supervising operator patricio regaurading patient fluid status and recent ngt insertion. new orders for ivf recieved. clarification that ice chips ok. bed down locked srx2 call light and possesions in reach. daughter states patient knows how to call for assistance as needed.
[2018-12-22 20:00] VITALS: BP 109/58
--- NOTE | 2018-12-22 20:17 | NUR ---
lovenox clarification per report lovenox was to be held but no orders to hold. order clarified with business continuity director radiator mechanic sylvia. informed ngt just inserted at 6pm and has maroon colored contents, new orders to hold recieved.
[2018-12-22] MEDS ORDERED: IV D5/0.45 NACL 1,000 ML IV ONE (21:00)
[2018-12-22] MEDS: IV D5/0.45 NACL 1,000 ML IV PRN (21:31)
[2018-12-22] MEDS: INSULIN GLARGINE, 100 UNIT/ML CARTRIDGE SQ SCH (21:45)
--- NOTE | 2018-12-23 06:50 | NUR ---
RN PM CLOSING NOTE PATIENT SEEN. IN BED NGT TO LIS, IVF INFUSING AT 75 TO ZEHRA PICC LINE. PATIENT IN NO APPARENT DISTRTESS. CALL LIGHT IN REACH. BED DOWN AND HAROLDO.D
[2018-12-23] MEDS: METOCLOPRAMIDE HCL 10 MG/2 ML VIAL IV SCH ×4 (06:59→23:12)
[2018-12-23] MEDS: BLOOD SUGAR DIAGNOSTIC 1 EACH STRIP IN SCH ×4 (07:02→21:16)
[2018-12-23] MEDS: SUCRALFATE 1 G/10 ML UDC PO SCH ×4 (07:30→21:16)
[2018-12-23 07:46] LABS: CALCIUM, SERUM 8.8 mg/dL (8.5-10.1); MAGNESIUM 1.8 mg/dL (1.8-2.4); PHOSPHORUS 3.3 mg/dL (2.5-4.9); POTASSIUM 3.3 mmol/L (3.5-5.1)
[2018-12-23 08:00] VITALS: BP 133/69
[2018-12-23] MEDS: MEROPENEM 1 G in IV NS 0.9% 100 ML IV SCH ×2 (08:27→21:04)
[2018-12-23] MEDS: PANTOPRAZOLE 40 MG VIAL IV SCH ×2 (08:27→21:04)
[2018-12-23] MEDS: hydrALAZINE HCL 50 MG TABLET PO SCH ×3 (08:54→17:00)
[2018-12-23] MEDS: VALSARTAN 80 MG TABLET PO SCH (08:55)
[2018-12-23] MEDS: ASPIRIN EC 81 MG TABLET.DR PO SCH (08:55)
[2018-12-23] MEDS: CARVEDILOL 12.5 MG TABLET PO SCH ×2 (08:55→21:00)
[2018-12-23] MEDS: ISOSORBIDE MONONITRATE (30MG) 30 MG TAB.SR.24H PO SCH (08:55)
[2018-12-23] MEDS: K PHOS NEUTRAL 250 MG TABLET PO SCH (08:56)
[2018-12-23] MEDS: CHOLECALCIFEROL 1,000 UNIT TABLET (VIT D3) PO SCH (08:56)
[2018-12-23] MEDS: AMLODIPINE BESYLATE 10 MG TABLET PO SCH (08:56)
[2018-12-23] MEDS: POTASSIUM CL. PREMIX PERIPHER. 50 ML IV SCH ×4 (10:30→17:09)
[2018-12-23] MEDS ORDERED: IOHEXOL-350 100 ML VIAL IV ONE (14:15)
[2018-12-23] MEDS ORDERED: IV NS 0.9% 250 ML IV ONE (14:15)
--- NOTE | 2018-12-23 14:25 | NUR ---
PATIENT PICKED UP BY RADIOLOGY STAFF IN STABLE CONDITION AND LEFT UNIT VIA WHEELCHAIR
--- NOTE | 2018-12-23 16:50 | NUR ---
patient back to unit; awake a/o x4 , no distress noted. Connected back to LI suctioning.
--- NOTE | 2018-12-23 17:20 | NUR ---
Tyler RADIO BOARD OPERATOR at bedside. Patient will be npo for EGD scheduled for tomorrow.
--- NOTE | 2018-12-23 18:43 | NUR ---
PATIENT IN BED ,NGT TO LIS, IVF INFUSING AT 75 ML/HR TO ZEHRA PICC LINE. PATIENT IN NO APPARENT DISTRESS. FAMILY AT BEDSIDE. SAFETY PRECAUTIONS OBSERVED, CALL LIGHT WITHIN REACH. PATIENT ELLE NPO ,: EGD IN AM. CONSENT SIGHED. WILL ENDORSE TO NEXT SHIFT FOR EMMY.
--- NOTE | 2018-12-23 19:30 | NUR ---
PATIENT IN BED ,NGT TO LIS, PLACEMENT CONFIRMED THROUGH AUSCULTATION .IVF INFUSING AT 75 ML/HR TO ZEHRA PICC LINE. PATIENT IN NO APPARENT DISTRESS. DAUGHTER AT BEDSIDE. SAFETY PRECAUTIONS OBSERVED, CALL LIGHT WITHIN REACH. PATIENT NPO ,: EGD IN AM. CONSENT SIGHED. REVIEWED POC WITH DAUGHTER AND PATIENT QUESTIONS CONCERNS ADDRESSED. BED DOWN LOCKED CALL LIGHT IN REACH.
[2018-12-23 20:00] VITALS: BP 121/67
[2018-12-23] MEDS: INSULIN GLARGINE, 100 UNIT/ML CARTRIDGE SQ SCH (21:16)
[2018-12-23] MEDS: INSULIN REGULAR, HUMAN 100 UNIT/ML 3 ML VIAL SQ PRN (21:21)
--- NOTE | 2018-12-24 | NUR ---
Dr. Last, EGD Reschedule, NGT Dr. Last called and cancelled the egd for this am of 12/24/18 and rescheduled it for 12/25/18Thursday at 9 am. reviewed patients condition, reported gastric fluid is yellow brown. new orders recieved to removed ngt tomorrow am and start patient on clear liquids. reviewed medications with yudith and protonix 40 mg ivp bid and carafte qid po already ordered.
[2018-12-24] MEDS: IV D5/0.45 NACL 1,000 ML IV PRN (06:29)
[2018-12-24] MEDS: METOCLOPRAMIDE HCL 10 MG/2 ML VIAL IV SCH ×3 (06:29→16:59)
--- NOTE | 2018-12-24 06:35 | NUR ---
rn pm closing note at 0530 ngt removed from patient right nare per md orders. patient tolerated the procedure. well started on clear liquids. at the current time patient denies n/v ivf infusing at 75ml per hour to kurt picc line. denies pain. EGD scheduled to happen thursday. patient starting clear liquids for breakfast. will endorse to day shift for ganesh. bed down locked sr x2 call light in reach.
[2018-12-24 07:08] LABS: BASOPHILS # (AUTO) 0.1 /CMM (0.0-0.2); BASOPHILS % (AUTO) 0.9 % (0.0-2.0); HEMATOCRIT 30 % (33-45); HEMOGLOBIN 10.1 g/dL (11.5-14.8); LYMPHOCYTES # (AUTO) 1.7 /CMM (0.8-4.8); LYMPHOCYTES % (AUTO) 25.9 % (20.0-44.0); MEAN CORPUSCULAR HGB CONC 34 g/dl (31.0-36.0); MEAN CORPUSCULAR VOLUME 81 fL (82-100); MONOCYTES # (AUTO) 0.6 /CMM (0.1-1.30); MONOCYTES % (AUTO) 9.7 % (2.0-12.0); NEUTROPHILS % (AUTO) 60.5 % (43.0-81.0); PLATELET COUNT (AUTO) 104 /CMM (150-450); RED BLOOD CELL COUNT(AUTO) 3.68 MIL/uL (4.0-5.2); WHITE BLOOD COUNT (AUTO) 6.6 K/uL (4.3-11.0)
[2018-12-24 07:11] LABS: CALCIUM, SERUM 9.1 mg/dL (8.5-10.1); CREATININE 0.9 mg/dL (0.6-1.3)
--- NOTE | 2018-12-24 07:33 | NUR ---
MS/RN OPENING NOTE PATIENT IN BED IN STABLE CONDITION. A/O X 3, VANCE SPEAKING. NO SIGNS OF ACUTE DISTRESS. NO COMPLAIN OF PAIN OR DISCOMFORT. ALL NEEDS ATTENDED TO AT THIS TIME. CALL LIGHT WITHIN REACH. WILL CONTINUE TO MONITOR TO ENSURE SAFETY.
[2018-12-24] MEDS: BLOOD SUGAR DIAGNOSTIC 1 EACH STRIP IN SCH ×4 (07:43→21:32)
[2018-12-24 08:00] VITALS: BP 152/75
[2018-12-24 08:16] LABS: EOSINOPHILS % (MANUAL) 1 % (0-4); LYMPHOCYTES % (MANUAL) 25 % (16-48); MONOCYTES % (MANUAL) 6 % (0-11.0); NEUTROPHILS % (MANUAL) 68 (42-76)
[2018-12-24] MEDS: MEROPENEM 1 G in IV NS 0.9% 100 ML IV SCH ×2 (08:39→19:56)
[2018-12-24] MEDS: PANTOPRAZOLE 40 MG VIAL IV SCH ×2 (08:39→21:17)
[2018-12-24] MEDS: SUCRALFATE 1 G/10 ML UDC PO SCH ×4 (08:39→21:19)
[2018-12-24] MEDS: CHOLECALCIFEROL 1,000 UNIT TABLET (VIT D3) PO SCH (08:40)
[2018-12-24] MEDS: CARVEDILOL 12.5 MG TABLET PO SCH ×2 (08:40→21:18)
[2018-12-24] MEDS: ISOSORBIDE MONONITRATE (30MG) 30 MG TAB.SR.24H PO SCH (08:40)
[2018-12-24] MEDS: AMLODIPINE BESYLATE 10 MG TABLET PO SCH (08:40)
[2018-12-24] MEDS: VALSARTAN 80 MG TABLET PO SCH (08:40)
[2018-12-24] MEDS: ASPIRIN EC 81 MG TABLET.DR PO SCH (08:40)
[2018-12-24] MEDS: hydrALAZINE HCL 50 MG TABLET PO SCH ×2 (08:45→13:00)
--- NOTE | 2018-12-24 11:50 | NUR ---
MS/RN SPOKE WITH DR MENDEZ TO VERIFIED IV FLUIDS PATIENT CURRENTLY ON D5 1/2 NS AT 75MLS/HR AND KCL 10MEQ WITH NS AT 75MLS/HR. PER DR MENDEZ DC D5 1/2 NS AND CONTINUE KCL 10MEQ WITH NS AT 75 MLS/HR. ORDERS NOTED AND CARRIED OUT. PATIENT NOTIFIED.
[2018-12-24] MEDS: INSULIN REGULAR, HUMAN 100 UNIT/ML 3 ML VIAL SQ PRN ×2 (12:15→17:13)
[2018-12-24] MEDS: Potassium Chloride 10 MEQ in IV NS 0.9% 1,000 ML IV PRN (12:17)
--- NOTE | 2018-12-24 13:49 | NUR ---
MS/RN PATIENT NOTED WITH BP OF 70/39, 71, HOB RAISED DOWN AND LEGS RAISED UP. RECHECKED BP NOTED 84/43, 81. SPOKE WITH DR MENDEZ AND NOTIFIED PATIENT'S LOW BP PER DR MENDEZ GIVE NS 250MLS BOLUS X 1 AND DC HYDRALAZINE, CHANGE NORVASC 10MG TO 5MG PO QD. NOTED AND CARRIED OUT. PATIENT AND FAMILY AT BEDSIDE NOTIFIED.
[2018-12-24] MEDS ORDERED: IV NS 0.9% 250 ML BAG IV ONE ×2 (14:00→17:00)
--- NOTE | 2018-12-24 14:47 | NUR ---
MS/RN S/P IV FLUID BOLUS BP NOTED 94/48, 76
[2018-12-24 16:00] VITALS: BP 82/45
--- NOTE | 2018-12-24 16:54 | NUR ---
MS/RN SPOKE WITH DR MENDEZ AND NOTIFIED PATIENT BP NOTED 84/40, 78 AND PATIENT COMPLAINING THAT HER HEAD FEELS KIND OF HEAVY, DENIES ANY DIZZINESS, NAUSEA/VOMITING OR CHEST PAIN AT THIS TIME. PER FAMILY THEY ARE CONCERNED WELL. PER DR MENDEZ DC ALL BLOOD PRESSURE MEDS EXCEPT COREG AND GIVE NS 250MLS BOLUS X 1 NOW. NOTED AND CARRIED OUT, PATIENT AND FAMILY NOTIFIED.
--- NOTE | 2018-12-24 18:06 | NUR ---
MS/RN CLOSING NOTE PATIENT IN BED IN STABLE CONDITION. A/O X 4, VANCE SPEAKING. NO SIGNS OF ACUTE DISTRESS. NO COMPLAIN OF PAIN OR DISCOMFORT. ALL NEEDS ATTENDED TO. CALL LIGHT WITHIN REACH. WILL ENDORSE TO NEXT SHIFT FOR CONTINUITY OF CARE.
--- NOTE | 2018-12-24 18:37 | NUR ---
MS/RN S/P IV FLUID BOLUS BP NOTED 105/51, 77, DENIES ANY CHEST PAIN, DISCOMFORT, DIZZINESS, N/V. WILL ENDORSE TO NEXT SHIFT FOR CONTINUITY OF CARE. DAUGHTER AT BEDSIDE AWARE.
--- NOTE | 2018-12-24 19:30 | NUR ---
RECEIVED PATIENT IN BED AWAKE. AO X 3, ABLE TO MAKE NEEDS KNOWN. NO ACUTE DISTRESS NOTED. DENIES ANY PAIN AT THIS TIME. NO SYMPTOMS OF HYPER/HYPOGLYCEMIA. IV SITE PATENT, INTACT; IVF INFUSING ORDERED. SAFETY REMINDERS GIVEN. ON LOW BED WITH BILATERAL UPPER SIDE RAILS UP. CALL ROSS WITHIN EASY REACH. WILL CONTINUE TO MONITOR.
[2018-12-24 20:00] VITALS: BP 99/50
[2018-12-24] MEDS: INSULIN GLARGINE, 100 UNIT/ML CARTRIDGE SQ SCH (22:00)
[2018-12-25] MEDS: METOCLOPRAMIDE HCL 10 MG/2 ML VIAL IV SCH ×3 (00:08→12:26)
--- NOTE | 2018-12-25 06:00 | NUR ---
PATIENT ASLEEP, EASILY AROUSABLE. RESPIRATIONS EVEN. NO SIGNS OF PAIN NOTED. DUE MEDS GIVEN WITH NO ASE NOTED. IVF INFUSING ORDERED. NPO SINCE MIDNIGHT. NEEDS ATTENDED. SAFETY PRECAUTIONS AND COMFORT MEASURES IN PLACE. WILL GIVE REPORT TO DAY SHIFT FOR CONTINUITY OF CARE.
[2018-12-25] MEDS: BLOOD SUGAR DIAGNOSTIC 1 EACH STRIP IN SCH ×2 (06:40→12:39)
[2018-12-25] MEDS: Potassium Chloride 10 MEQ in IV NS 0.9% 1,000 ML IV PRN (07:00)
--- NOTE | 2018-12-25 07:44 | NUR ---
RN MS OPENING NOTES Received patient on room air, no sob noted. Patient does not show any s/s of pain at this time. Patient about to go for EGD, all paper works signed and done. Patient remains NPO at this time. Bed at the lowest setting, call light within reach.
[2018-12-25] MEDS ORDERED: SIMV40TA5 PO (07:53)
[2018-12-25 08:00] VITALS: BP 133/61
[2018-12-25] MEDS ORDERED: ATORVASTATIN 40 MG TABLET PO SCH (08:00)
[2018-12-25 09:00] VITALS: BP 122/58
[2018-12-25] MEDS ORDERED: AMLODIPINE BESYLATE 5 MG TABLET PO SCH (09:00)
[2018-12-25] MEDS: CARVEDILOL 12.5 MG TABLET PO SCH (09:00)
[2018-12-25] MEDS: SUCRALFATE 1 G/10 ML UDC PO SCH ×2 (09:09→12:26)
[2018-12-25] MEDS: PANTOPRAZOLE 40 MG VIAL IV SCH (09:09)
[2018-12-25] MEDS: CHOLECALCIFEROL 1,000 UNIT TABLET (VIT D3) PO SCH (09:09)
[2018-12-25] MEDS: ASPIRIN EC 81 MG TABLET.DR PO SCH (09:09)
[2018-12-25] MEDS: MEROPENEM 1 G in IV NS 0.9% 100 ML IV SCH (09:10)
[2018-12-25] MEDS: INSULIN REGULAR, HUMAN 100 UNIT/ML 3 ML VIAL SQ PRN (12:50)
--- NOTE | 2018-12-25 15:19 | NUR ---
RN MS DISCHARGE NOTES Patient discharged, on room air and no sob noted. Patient denies pain during discharge. Vital signs stable and PICC line d/c'd before she left per order. Photo's taken and is now in her chart. Patient's belonging's with her possession at the time of d/c. Belongings list signed and accounted for. Patient's prescription with her and has no further concerns or questions about the new medications. Patient's discharge orders discussed with patient and she has no other questions about it and has clear understanding of what to do. Patient has all the paper work that she requested for. Patient is taken home by her daughter in their personal car.
== END 2018-12-25 14:40 | disposition home or self-care (01) | DRG 190 ==
LOC: ER 17:37 → TELE 20:32 → MED 12-21 08:30
PROVIDERS: ADMIT Nurse Practitioner Acute Care; ATTEND Internal Medicine
PROC: B548ZZA Ultrasonography of Superior Vena Cava, Guidance (ICD-10-PCS; principal; 2018-12-21)
PROC: 02HV33Z Insertion of Infusion Device into Superior Vena Cava, Percutaneous Approach (ICD-10-PCS; principal; 2018-12-21)
PROC: 0DB78ZX Excision of Stomach, Pylorus, Via Natural or Artificial Opening Endoscopic, Diagnostic (ICD-10-PCS; 2018-12-25)
PROC: 0DB48ZX Excision of Esophagogastric Junction, Via Natural or Artificial Opening Endoscopic, Diagnostic (ICD-10-PCS; 2018-12-25)
PROC: 0D778ZZ Dilation of Stomach, Pylorus, Via Natural or Artificial Opening Endoscopic (ICD-10-PCS; 2018-12-25)
DX: I21.4 Non-ST elevation (NSTEMI) myocardial infarction (principal); E87.1 Hypo-osmolality and hyponatremia; E11.65 Type 2 diabetes mellitus with hyperglycemia; E87.2 Acidosis; K31.84 Gastroparesis; E83.42 Hypomagnesemia; E11.43 Type 2 diabetes mellitus with diabetic autonomic (poly)neuropathy; N39.0 Urinary tract infection, site not specified; E86.0 Dehydration; B96.89 Other specified bacterial agents as the cause of diseases classified elsewhere; I25.10 Atherosclerotic heart disease of native coronary artery without angina pectoris; E87.6 Hypokalemia; Z79.4 Long term (current) use of insulin; Z87.440 Personal history of urinary (tract) infections; Z79.82 Long term (current) use of aspirin; K21.0 Gastro-esophageal reflux disease with esophagitis; K44.9 Diaphragmatic hernia without obstruction or gangrene; Z95.1 Presence of aortocoronary bypass graft; Z95.0 Presence of cardiac pacemaker; D64.9 Anemia, unspecified; D72.829 Elevated white blood cell count, unspecified; I77.4 Celiac artery compression syndrome; K82.8 Other specified diseases of gallbladder; K31.89 Other diseases of stomach and duodenum; R93.5 Abnormal findings on diagnostic imaging of other abdominal regions, including retroperitoneum; I77.1 Stricture of artery; I25.2 Old myocardial infarction; K51.90 Ulcerative colitis, unspecified, without complications
CPT/HCPCS: 36415; 36569; 70450-TC; 71045-TC; 75574; 76700-TC; 78226; 80048-TC; 80053-TC; 80061-TC; 80076-TC; 81000-TC; 82728-TC; 82962-TC; 83540-TC; 83605-TC; 83690-TC; 83735-TC; 84100-TC; 84484-TC; 85025-TC; 87040-TC; 87081-TC; 87086-TC; 88305-TC; 88313-TC; 88342; 93307-TC; A4216; A9537; A9541; C9113; G0378; J0360; J0743; J1650; J1815; J2060; J2185; J2270; J2405; J2765; J3475; J3480; J3490; J7030; J7050; Q9967

== ENCOUNTER 2020-03-26 14:23 | Emergency (ER) | payer MEDICAID ==
[~2020-03-26] VITALS: Ht 147.3 cm; Wt 72.1 kg
[~2020-03-26 14:23] MED LIST: ASPI-1420 PO; CHOL100044 PO; INSU100V28 SQ; INSU100V7 SQ; METF-440 PO; NEBI2.5T5 PO; SIMV-49 PO; [UNRECOGNIZED DRUG - OTHER] PO
--- NOTE | 2020-03-26 14:23 | NUR ---
PT BIB DAUGHTER C/O CONSTANT R SIDED CHEST PAIN X 1 MONTH. PT IS AAOX4, NOT IN RESPIRATORY DISTRESS, HOOKED TO TELEPHONE SUPERVISOR, KEPT RESTED AND COMFORTABLE. WILL CONTINUE TO MONITOR.
--- NOTE | 2020-03-26 14:38 | NUR ---
SEEN AND EXAMINED BY .
--- NOTE | 2020-03-26 14:45 | NUR ---
IV LINE ESTABLISHED BLOOD DRAWN AND SENT TO LAB.
--- NOTE | 2020-03-26 14:50 | NUR ---
ASIAN ART CURATOR AT BEDSIDE FOR XRAY.
[2020-03-26 14:55] LABS: BASOPHILS # (AUTO) 0.1 /CMM (0.0-0.2); BASOPHILS % (AUTO) 0.9 % (0.0-2.0); EOSINOPHILS % (AUTO) 2.7 % (0.0-6.0); HEMATOCRIT 34 % (33-45); HEMOGLOBIN 10.9 g/dL (11.5-14.8); LYMPHOCYTES # (AUTO) 2.8 /CMM (0.8-4.8); LYMPHOCYTES % (AUTO) 28.4 % (20.0-44.0); MEAN CORPUSCULAR HGB CONC 32 g/dl (31.0-36.0); MEAN CORPUSCULAR VOLUME 86 fL (82-100); MONOCYTES # (AUTO) 0.8 /CMM (0.1-1.30); PLATELET COUNT (AUTO) 245 /CMM (150-450); RED BLOOD CELL COUNT(AUTO) 3.97 MIL/uL (4.0-5.2); WHITE BLOOD COUNT (AUTO) 9.9 K/uL (4.3-11.0)
[2020-03-26 15:03] LABS: CALCIUM, SERUM 9.2 mg/dL (8.5-10.1); CREATININE 1.5 mg/dL (0.6-1.3); POTASSIUM 4.7 mmol/L (3.5-5.1)
[2020-03-26 15:08] LABS: ALBUMIN 3.1 g/dL (3.4-5.0); BILIRUBIN,DIRECT 0.1 mg/dL (0.0-0.2); BILIRUBIN,TOTAL 0.3 mg/dL (0.2-1.0); TOTAL PROTEIN, SERUM 7.1 g/dL (6.4-8.2)
[2020-03-26] MEDS ORDERED: ASPIRIN 81 MG TAB.CHEW PO ONE (16:30)
[2020-03-26] MEDS ORDERED: NITROGLYCERIN PACKET 1 GM PACKET TOP ONE (16:30)
[2020-03-26] MEDS ORDERED: NITROGLYCERIN PACKET 1 GM PACKET ONE (16:30)
[2020-03-26] MEDS ORDERED: IV NS 0.9% 500 ML BAG IV ONE ×2 (16:30→17:00)
[2020-03-26] MEDS ORDERED: ASPIRIN 81 MG TAB.CHEW ONE (16:31)
--- NOTE | 2020-03-26 16:39 | NUR ---
COST REPORT CLERK AT BEDSIDE FOR REPEAT EKG.
[2020-03-26] MEDS ORDERED: [UNRECOGNIZED DRUG - OTHER] PO (16:48)
[2020-03-26] MEDS ORDERED: CT SWABBABLE VALVE TRANS SET 1 EA INFUS.SET MC ONE (17:16)
[2020-03-26] MEDS ORDERED: IV NS 0.9% 250 ML IV ONE (17:16)
[2020-03-26] MEDS ORDERED: IOHEXOL-350 100 ML VIAL IV ONE (17:16)
--- NOTE | 2020-03-26 17:24 | NUR ---
PAGED [facility].
--- NOTE | 2020-03-26 17:35 | NUR ---
COVID SWAB OBTAINED AND SENT TO LAB.
[2020-03-26 18:57] VITALS: BP 142/75
--- NOTE | 2020-03-26 19:26 | NUR ---
REPORT GIVEN TO ELAINE RIVERA FOR EMMY.
--- NOTE | 2020-03-26 19:46 | NUR ---
Patient does not wish to proceed with medical care recommended by Dr. KAUFFMAN. Patient given information related to possible complications, up to and including , which could occur as a result of leaving the hospital at this time. Patient verbalizes understanding of risks involved due to leaving against medical advice. Patient has signed AMA form. IV removed. Catheter intact and site benign. Pressure and 4x4 applied to site. No bleeding noted.
== END 2020-03-26 19:52 | disposition left against medical advice (07) ==
LOC: ER 14:27
DX: I21.4 Non-ST elevation (NSTEMI) myocardial infarction (principal); E86.0 Dehydration; D64.9 Anemia, unspecified; Z20.828 Contact with and (suspected) exposure to other viral communicable diseases; Z95.810 Presence of automatic (implantable) cardiac defibrillator; R91.8 Other nonspecific abnormal finding of lung field; Z95.1 Presence of aortocoronary bypass graft; I70.0 Atherosclerosis of aorta; Z79.4 Long term (current) use of insulin; Z79.899 Other long term (current) drug therapy; E11.9 Type 2 diabetes mellitus without complications; I11.9 Hypertensive heart disease without heart failure; I25.10 Atherosclerotic heart disease of native coronary artery without angina pectoris; K44.9 Diaphragmatic hernia without obstruction or gangrene; E78.5 Hyperlipidemia, unspecified
CPT/HCPCS: 36415; 71045; 71275; 76705; 80048; 80076; 83690; 84484; 85025; 85378; 87081; 87426; 93005 ×2; 96360; 99291; J7040 ×2; J7050; Q9967